=== PATIENT | male | born 2000 | race Hispanic/Latino ===

== ENCOUNTER 2021-10-25 01:29 | Emergency (ER) | payer OTHER, SELFPAY ==
[2021-10-25 01:33] VITALS: BP 130/82; PULSE 87; RESP 20; TEMP 36.9; O2SAT 96; BMI 25.0
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
[2021-10-25 04:40] VITALS: BP 113/61; PULSE 99; RESP 16; O2SAT 98
== END 2021-10-25 04:40 | disposition home or self-care (01) ==
PROVIDERS: Emergency Provider Emergency Medicine
DX: S09.93XA Unspecified injury of face, initial encounter (principal); V89.2XXA Person injured in unspecified motor-vehicle accident, traffic, initial encounter
CPT/HCPCS: 99283